=== PATIENT | female | born 1935 | race Caucasian/White ===

== ENCOUNTER 2023-11-13 10:19 | Inpatient (IN) ==
--- NOTE | 2023-11-13 10:23 | Emergency Department Note ---
Impression & Plan Cellulitis, Chronic wound ED Provider Note NAME: LUIZA CEE AGE: 88 SEX: F : 1935 ARRIVES VIA: Ambulance INFORMANT: Patient ED PROVIDER(S): ELVA Thomas, Flakito Johnston DO CHIEF COMPLAINT: Left lower extremity wound HISTORY OF PRESENT ILLNESS: This 88-year-old female patient presents to the emergency department via ambulance for evaluation of a worsening wound and cellulitis to the left lower extremity. The patient arrived from [facility], where she has been on multiple oral antibiotics, that have not appeared to improve her symptoms. The son arrived at the facility today, to visit his mother, and noted to the wound on the left lower extremity was significantly worse, and requested evaluation at the emergency department. The patient has dementia and Alzheimer's at baseline, and is a poor historian. She is hypertensive upon evaluation, however her others vital signs are stable. She complains of no other pain on examination aside from the left lower extremity. REVIEW OF SYSTEMS: A review of systems was performed with positives and pertinent negatives listed in the history of present illness. All other systems were reviewed and are negative. ALLERGIES: See below MEDICATIONS: See below PMH: See below PHYSICAL EXAM: VITALS: Vitals are noted on the nurse's note and reviewed by myself. Vital signs stable. GENERAL: 88-year-old female, in no acute distress, nondiaphoretic. SKIN: Circumferential cellulitis extending from the mid hills to the ankle of the left leg with a 2 cm x 2 cm lesion to the medial calf with crusting, exudate, drainage present. There is also a hardened, likely necrotic area to the right medial calf with no surrounding cellulitis. HEAD: Normocephalic atraumatic. EYES: Pupils equal round and reactive to light and accommodation. Conjunctivae without injection, sclerae without icterus. Extraocular movements intact. HEART: Regular rate and rhythm without murmurs gallops or rubs. LUNGS: Clear to auscultation bilaterally without wheezes, rales or rhonchi. No retractions or accessory muscle use. ABDOMEN: Positive bowel sounds x 4. Soft, nontender, without masses or organomegaly. Maldonado sign negative. No guarding or rebound tenderness. MUSCULOSKELETAL: No muscle atrophy, erythema, or edema noted. Exam limited to patient's baseline mental status. NEURO: Patient was alert and oriented to person place and time. No focal neurological deficits. MEDICAL DECISION MAKING: The patient is an 88-year-old female who arrives to the emergency department for evaluation of the above-stated complaint. A saline lock was established, CBC, CMP, lactate were obtained. CBC shows no leukocytosis with a stable hemoglobin and hematocrit, CMP unremarkable, lactate negative, wound culture was obtained which will not result during the patient's Emergency Department stay, but will be used to tailor antibiotic treatment upon discharge or admission. An ultrasound of the left lower extremity was obtained to rule out DVT, and determine abscess versus ulceration. Ultrasound imaging shows abscess versus phlegmon, likely phlegmon. I spoke with the son regarding the patient's wound, as well as her failed outpatient treatment. The send requested inpatient admission to the hospital for further treatment as the patient has been on doxycycline and Keflex with failed outpatient treatment. The son is concerned the patient is not getting the appropriate wound care at her facility, and feels the patient will continue to decline. He states the cellulitis is worsening. When asked if the patient follows with wound care, he said she does not. I spoke with the hospitalist for [facility], who agreed to accept the patient for admission, and requested IV vancomycin and Rocephin for broad-spectrum coverage. She reported she would consult general surgery for the wounds, as they are likely surgical and need debridement. Vancomycin and cefepime were ordered for the patient, while she was awaiting admission. The patient did test positive for COVID, which was obtained for admission status. I notified the [facility] hospitalist regarding this result. Please refer to the [facility] Hospitalist note regarding further patient workup and care. DIFFERENTIAL DIAGNOSIS: Cellulitis, abscess, MRSA infection, DVT, necrotizing fasciitis, dermatitis, drug eruption, allergic reaction, as well as other pathologies. The patient's case was discussed with Dr. Johnston, who agreed with my evaluation and treatment plan. The chart was completed utilizing [employer] Speech voice recognition software. Grammatical errors, random word insertions, pronoun errors, and incomplete sentences are an occasional consequence of this system due to software limitations, ambient noise, and hardware issues. Any formal questions or concerns about the content, text, or information contained within the body of this dictation should be directly addressed to the physician for clarification. 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 Beliefs That Will Affect Care: None Current Living Situation: Personal Care Facility Other Information That Helps Us Care for You: No Feels Safe at Home: Yes Safety Concerns: Feels Safe At This Time Assistive Devices: Walker Allergies Allergies Allergy/AdvReac Type Severity Reaction Status Date / Time No Known Allergies Allergy Unverified 11/13/23 13:27 Home Meds Home Medications Medication Instructions Recorded Confirmed acetaminophen 325 mg tablet 650 mg PO DAILY PRN Pain/Temp 11/13/23 11/13/23 atenolol 25 mg tablet 25 mg PO DAILY 11/13/23 11/13/23 cholecalciferol (vitamin D3) 25 25 mcg PO DAILY 11/13/23 11/13/23 mcg (1,000 unit) tablet (Vitamin D3) ferrous sulfate 325 mg (65 mg 325 mg PO BID 11/13/23 11/13/23 iron) tablet loperamide 2 mg capsule (Imodium 2 mg PO Q6H PRN Diarrhea 11/13/23 11/13/23 A-D) melatonin 5 mg tablet 5 mg PO HS 11/13/23 11/13/23 memantine 5 mg tablet 5 mg PO DAILY 11/13/23 11/13/23 Results & Data (ED) Vital Signs Vital Signs - 24 hr 11/13/23 10:14 11/13/23 10:37 Temperature 37.1 C Temperature Source Oral Pulse Rate 68 68 Pulse Rhythm Regular Regular Pulse Strength Normal Respiratory Rate 22 20 Respiratory Effort / Characteristics Non-Labored Spontaneous Respiratory Depth Normal Respiratory Pattern Regular Blood Pressure 175/85 H Blood Pressure Mean 115 Blood Pressure Position Sitting Pulse Oximetry 97 96 Oxygen Delivery Method Room Air Room Air Sepsis Recent Fever Within 48 Hours No Sepsis New/Unexplained Change in Mental Status No Sepsis Action Taken by Nursing No Action Required Home Medications Current Medication List: was personally reviewed by me Laboratory Data Attestation: I reviewed the patient's lab results. 11/15/23 09:53 11/15/23 09:53 Lab Results 11/13/23 11/13/23 Range/Units 11:44 13:07 WBC 6.70 (4.8-10.8) K/ul RBC 4.23 (4.20-5.40) M/uL Hgb 13.9 (12.0-16.0) g/dl Hct 41.8 (37.0-47.0) % MCV 98.8 (80.0-100.0) fL MCH 32.9 (25.0-34.0) pg MCHC 33.3 (32.0-36.0) g/dL RDW Std Deviation 45.1 (36.4-46.3) fL RDW Coeff of Mariola 12.4 (11.5-14.5) % Plt Count 226 (130-400) K/uL MPV 11.1 (9.4-12.4) fL Immature Gran % (Auto) 0.1 % Neut % (Auto) 71.9 % Lymph % (Auto) 9.7 % Miner % (Auto) 17.0 % Eos % (Auto) 0.7 % Baso % (Auto) 0.6 % Neut # (Auto) 4.81 (1.40-6.50) K/uL Lymph # (Auto) 0.65 L (1.20-3.40) K/uL Miner # (Auto) 1.14 H (0.11-0.59) K/uL Eos # (Auto) 0.05 (0.00-0.50) K/uL Baso # (Auto) 0.04 (0.00-0.20) K/uL Immature Gran # (Auto) 0.01 (0.01-0.20) K/uL Sodium Cancelled Potassium Cancelled Chloride Cancelled Carbon Dioxide Cancelled Anion Gap Cancelled BUN Cancelled Creatinine Cancelled Est Cr Clr Drug Dosing Cancelled Est GFR ( Amer) Cancelled Est GFR (Non-Af Amer) Cancelled BUN/Creatinine Ratio Cancelled Glucose Cancelled Lactate 1.8 (0.4-2.0) mmol/L Calcium Cancelled Total Bilirubin Cancelled AST Cancelled ALT Cancelled Alkaline Phosphatase Cancelled Total Protein Cancelled Albumin Cancelled Globulin Cancelled Albumin/Globulin Ratio Cancelled SARS-CoV-2, RNA, NAAT POSITIVE A (NEGATIVE) Administered Medications Atenolol (Atenolol 25 Mg Tablet) 25 mg PO DAILY [facility] Stop: 12/13/23 16:45 Last Admin: 11/15/23 08:29 Dose: 25 mg Documented By: Admin: 11/14/23 10:20 Dose: 25 mg Documented By: Admin: 11/13/23 17:50 Dose: Not Given Documented By: PHILOMENA Ferrous Sulfate (Ferrous Sulfate 325 Mg Tab) 325 mg PO BID [facility] Stop: 12/13/23 20:59 Last Admin: 11/15/23 08:29 Dose: 325 mg Documented By: Admin: 11/14/23 20:43 Dose: 325 mg Documented By: Admin: 11/14/23 10:21 Dose: 325 mg Documented By: Admin: 11/13/23 21:07 Dose: Not Given Documented By: Heparin Sodium (Porcine) (Heparin Sod 5,000 Unit/0.5 Ml Vial) 5,000 units SQ Q12 [facility] Stop: 12/13/23 20:59 Last Admin: 11/15/23 08:34 Dose: 5,000 units Documented By: Admin: 11/14/23 20:53 Dose: 5,000 units Documented By: Admin: 11/14/23 10:19 Dose: 5,000 units Documented By: Admin: 11/13/23 20:34 Dose: 5,000 units Documented By: Hydromorphone HCl (Hydromorphone Inj 0.5 Mg/0.5 Ml Syr) 0.25 mg IV Q6H PRN PRN Reason: Severe Pain (Scale 7, 8, 9,10) Stop: 11/27/23 16:45 Last Admin: 11/15/23 04:06 Dose: 0.25 mg Documented By: Admin: 11/14/23 21:32 Dose: 0.25 mg Documented By: Admin: 11/13/23 17:02 Dose: 0.25 mg Documented By: PHILOMENA Cefepime HCl 2,000 mg/ Syringe 20 mls @ 5 mls/min IV Q12H [facility]; Protocol Stop: 11/20/23 16:45 Last Admin: 11/15/23 16:37 Dose: 5 mls/min Documented By: Admin: 11/15/23 04:28 Dose: 5 mls/min Documented By: Admin: 11/14/23 17:23 Dose: 5 mls/min Documented By: Admin: 11/14/23 06:27 Dose: 5 mls/min Documented By: Admin: 11/13/23 17:55 Dose: 5 mls/min Documented By: HS Daptomycin 225 mg/ Syringe 4.5 mls @ 2.25 mls/min IV Q24H [facility]; Protocol Stop: 11/20/23 20:59 Last Admin: 11/14/23 20:52 Dose: 2.25 mls/min Documented By: Admin: 11/13/23 20:34 Dose: 2.25 mls/min Documented By: Melatonin (Melatonin 3 Mg Tab) 3 mg PO [facility] Stop: 12/13/23 20:59 Last Admin: 11/14/23 20:43 Dose: 3 mg Documented By: Admin: 11/13/23 21:07 Dose: Not Given Documented By: Memantine (Memantine Hcl 5 Mg Tab) 5 mg PO DAILY [facility] Stop: 12/14/23 08:59 Last Admin: 11/15/23 08:28 Dose: 5 mg Documented By: Admin: 11/14/23 10:21 Dose: 5 mg Documented By: KRIS Miconazole Nitrate (Miconazole Nitrate Powder 85 Gm) 1 appln EXT PRN PRN PRN Reason: Affected Skin Folds Stop: 12/14/23 01:30 Last Admin: 11/14/23 03:14 Dose: 1 appln Documented By: B Olanzapine (Olanzapine 10 Mg/2.1 Ml Sdv) 2.5 mg IM Q6H PRN PRN Reason: Agitation Stop: 12/13/23 16:45 Last Admin: 11/14/23 03:44 Dose: 2.5 mg Documented By: ANGELITO Vitamin D (Cholecalciferol 25 Mcg (1000 Units) Tab) 25 mcg PO DAILY [facility] Stop: 12/14/23 08:59 Last Admin: 11/15/23 08:29 Dose: 25 mcg Documented By: Admin: 11/14/23 10:20 Dose: 25 mcg Documented By: KRIS Discontinued Medications Gadobutrol (Gadobutrol 65ml Vial) 5 ml IV ONCE ONE Stop: 11/14/23 02:39 Last Admin: 11/14/23 02:39 Dose: 5 ml Documented By: TRICIA Ceftriaxone Sodium (Rocephin) 1,000 mg in 50 mls @ 100 mls/hr IV NOW STA Stop: 11/13/23 14:17 Last Infusion: 11/13/23 19:34 Dose: Infused Documented By: Admin: 11/13/23 15:18 Dose: 100 mls/hr Documented By: PHILOMENA Vancomycin HCl 1,250 mg/ (Sodium Chloride) 525 mls @ 200 mls/hr IV NOW ONE Stop: 11/13/23 16:25 Last Infusion: 11/13/23 19:29 Dose: Infused Documented By: Admin: 11/13/23 16:17 Dose: 200 mls/hr Documented By: Discharge Plan Visit Data Chief Complaint: Leg Weakness, Bilateral Stated Complaint: LEG WOUNDS, DIFF AMBULATING ED Provider: Flakito Johnston ED Midlevel Provider: Alessandra Gautam Discharge Problem: Cellulitis, Chronic wound Patient Disposition: Admitted As Inpatient Discharge Instructions Interventions: ED Discharge Assessment Last Done: 11/13/23 16:37 Discharge Problem: Cellulitis Qualifiers: Site of cellulitis: extremity Site of cellulitis of extremity: lower extremity Laterality: unspecified laterality Qualified Code(s): L03.119 - Cellulitis of unspecified part of limb
[2023-11-13 12:16] LABS: Basophils # (auto) 0.04 K/uL (0.00-0.20); Basophils % (auto) 0.6 %; Eosinophils # (auto) 0.05 K/uL (0.00-0.50); Eosinophils % (auto) 0.7 %; Hematocrit (blood only) 41.8 % (37.0-47.0); Hemoglobin 13.9 g/dl (12.0-16.0); Immature Granulocytes # (auto) 0.01 K/uL (0.01-0.20); Immature Granulocytes % (auto) 0.1 %; Lymphocytes # (auto) 0.65 K/uL (1.20-3.40); Lymphocytes % (auto) 9.7 %; Mean Corpuscular Hemoglobin 32.9 pg (25.0-34.0); Mean Corpuscular Hgb Conc 33.3 g/dL (32.0-36.0); Mean Corpuscular Volume 98.8 fL (80.0-100.0); Mean Platelet Volume 11.1 fL (9.4-12.4); Monocytes # (auto) 1.14 K/uL (0.11-0.59); Neutrophils # (auto) 4.81 K/uL (1.40-6.50); Neutrophils % (auto) 71.9 %; Platelet Count 226 K/uL (130-400); RDW Coefficient of Variation 12.4 % (11.5-14.5); RDW Standard Deviation 45.1 fL (36.4-46.3); Red Blood Count 4.23 M/uL (4.20-5.40)
--- NOTE | 2023-11-13 13:00 | Ultrasound Report ---
US venous doppler LE LT CLINICAL HISTORY: abscess vs ulceration TECHNIQUE: Left lower extremity real-time compression venous ultrasound with Color Doppler imaging. U tilizing real-time ultrasonic imaging multiple real time high-resolution ultrasonic images with compr ession and noncompression maneuvers of the deep venous system in addition to color doppler imaging we re performed from the common femoral vein through the proximal calf veins. COMPARISON: None available at the time of this dictation. FINDINGS/IMPRESSION: No deep venous thrombus, there is normal compressibility of the deep venous system from the common fe moral vein through the proximal calf veins. Ill-defined complex fluid collection measuring approxima tely 2.1 x 1.8 x 1.8 cm is seen in the left medial calf adjacent to an ulcer. There is minimal surrou nding Doppler flow. Findings may represent developing phlegmon but no definite abscess is seen. ACT 112: Negative or not required by law. Electronically signed by: David Augustine M.D. 11/13/2023 12:58 PM
[2023-11-13] MEDS ORDERED: VANCOMYCIN CONSULT ACTIVE PRN (13:48)
--- NOTE | 2023-11-13 13:57 | History & Physical Report ---
Date of Service November 13, 2023 Assessment & Plan (1) Cellulitis: (2) Chronic wound: Plan Patient is an 88-year-old female with past medical history significant for dementia, hypertension, iron deficiency anemia, insomnia, vitamin D deficiency presenting from [facility] with concern for lower extremity wounds and cellulitis. Reportedly patient was on doxycycline and Keflex antibiotics courses for treatment at [facility]. Family denies any noted fevers, chills or night sweats But they do note that the wounds have been present for at least a month bilaterally. Cellulitis, bilateral lower extremities Chronic wounds Per son, wounds have been present for at least a month bilaterally Venous Doppler done in the emergency room of the left lower extremity notes no deep venous thrombi however it does note a complex fluid collection Right lower extremity with noted firm wound with possible necrotic center MRIs of bilateral lower extremities ordered to rule out osteomyelitis Wound culture pending No concern for sepsis at this time General Surgery consult for possible incision and drainage or surgical debridement Wound care nurse consult Received empiric IV Rocephin and vancomycin in the emergency room, we will continue with IV cefepime and Dapto Follow cultures and adjust antibiotics as needed As needed pain meds COVID-19 infection Patient testing positive for COVID, currently asymptomatic Not currently hypoxic Presenting from long term Supportive care as needed COVID precautions continue to monitor Dementia Family concerned as the note patient sundown's severely Delirium precautions, Frequent reorientation, avoid sedating medications as able Continue home memantine As needed olanzapine for agitation Hypertension Continue home atenolol Continue other home meds as ordered CODE STATUS: DNR per [facility] documentation, confirmed with son Diet: regular DVT prophylaxis: Heparin subcu Dispo: Admit to [facility] History of Present Illness Chief Complaint: Chronic wounds Primary Care Provider: Diego Leigh DO Patient is an 88-year-old female with past medical history significant for dementia, hypertension, iron deficiency anemia, insomnia, vitamin D deficiency presenting from [facility] with concern for lower extremity wounds and cellulitis. Reportedly patient was on doxycycline and Keflex antibiotics courses for treatment at [facility] with no improvement in symptoms. Family denies any noted fevers, chills or night sweats. But they do note that the wounds have been present for at least a month bilaterally. They note that their mom has dementia and at baseline is unable to answer questions. Son present in the room states he is the POA, states he has paperwork at home. Later confirmed with son that patient is DNR/DNI. Allergies Allergy/AdvReac Type Severity Reaction Status Date / Time No Known Allergies Allergy Unverified 11/13/23 13:27 Home Medications Medication Instructions Recorded Confirmed Type acetaminophen 325 mg tablet 650 mg PO DAILY PRN Pain/Temp 11/13/23 11/13/23 History atenolol 25 mg tablet 25 mg PO DAILY 11/13/23 11/13/23 History cholecalciferol (vitamin D3) 25 25 mcg PO DAILY 11/13/23 11/13/23 History mcg (1,000 unit) tablet (Vitamin D3) ferrous sulfate 325 mg (65 mg 325 mg PO BID 11/13/23 11/13/23 History iron) tablet loperamide 2 mg capsule (Imodium 2 mg PO Q6H PRN Diarrhea 11/13/23 11/13/23 History A-D) melatonin 5 mg tablet 5 mg PO HS 11/13/23 11/13/23 History memantine 5 mg tablet 5 mg PO DAILY 11/13/23 11/13/23 History Past Med/Surg History Problem List (Updated 11/13/23 @ 14:47 by Sole Kunz MD) Chronic wound Cellulitis Social History Smoking Status: Unknown if ever smoked Feels Safe at Home: Declines to Answer Review of Systems Review of Systems: All systems reviewed & are unremarkable except as noted in Subjective Physical Exam Physical Exam: General: Alert, Confused. No acute distress Skin: left lower extremity with erythema and noted prominent protruding, tender lesion with drainage on posterior calf. Right lower extremity firm and erythematous with possible necrotic center on posterior calf. Psych: confused Neuro: , difficulty with movements in the bed HEENT: NC/AT CV: RRR Resp: no increased effort of breathing Abdomen: Soft, nontender Extremities: left lower extremity with erythema and noted prominent protruding, tender lesion with drainage on posterior calf. Right lower extremity firm and erythematous with possible necrotic center on posterior calf. Results & Data Results & Data Vital Signs (Past 12 Hours) Vital Signs Temp Pulse Pulse Resp BP BP Pulse Ox 11/13/23 13:09 64 20 184/79 H 97 11/13/23 10:37 68 20 96 11/13/23 10:14 37.1 C 68 22 175/85 H 97 O2 Del Method 11/13/23 13:09 Room Air 11/13/23 10:37 Room Air 11/13/23 10:14 Room Air Diagnostic Findings Venous Doppler Study 11/13/23 10:36 US venous doppler LE LT CLINICAL HISTORY: abscess vs ulceration TECHNIQUE: Left lower extremity real-time compression venous ultrasound with Color Doppler imaging. Utilizing real-time ultrasonic imaging multiple real time high-resolution ultrasonic images with compression and noncompression maneuvers of the deep venous system in addition to color doppler imaging were performed from the common femoral vein through the proximal calf veins. COMPARISON: None available at the time of this dictation. FINDINGS/IMPRESSION: No deep venous thrombus, there is normal compressibility of the deep venous system from the common femoral vein through the proximal calf veins. Ill- defined complex fluid collection measuring approximately 2.1 x 1.8 x 1.8 cm is seen in the left medial calf adjacent to an ulcer. There is minimal surrounding Doppler flow. Findings may represent developing phlegmon but no definite abscess is seen. ACT 112: Negative or not required by law. Electronically signed by: David Augustine M.D. 11/13/2023 12:58 PM
[2023-11-13 14:51] LABS: Albumin Globulin Ratio 1.2 (0.9-2); Albumin Level 3.8 gm/dl (3.4-5.0); BUN Creatinine Ratio 19.7 (10-20); Bilirubin,Total 0.6 mg/dl (0.2-1.0); Calcium 9.2 mg/dl (8.6-10.3); Creatinine Clr Calc Pharmacy 45.9 ml/min; Est GFR (African American) 82.3 ml/min; Globulin 3.1 gm/dl (2.5-4.0); Potassium 4.4 mmol/L (3.5-5.1); Total Protein 6.9 gm/dl (6.0-8.3)
[2023-11-13] MEDS: cefTRIAXone SODIUM 1,000 MG/50 ML BAG IV STA (15:18)
[2023-11-13] MEDS: VANCOMYCIN HCL 1,250 MG in SODIUM CHLORIDE 0.9% 500 ML IV ONE (16:17)
[2023-11-13] MEDS ORDERED: DOCUSATE SODIUM 100 MG CAP PO PRN (16:46)
[2023-11-13] MEDS ORDERED: oxyCODONE HCL IR 5 MG TAB (IMMEDIATE RELEASE) PO PRN (16:46)
[2023-11-13] MEDS ORDERED: POLYETHYLENE (MIRALAX) 17 GM PACK PO PRN (16:46)
[2023-11-13] MEDS: HYDROmorphone INJ 0.5 MG/0.5 ML SYR IV PRN (17:02)
[2023-11-13] MEDS: ATENOLOL 25 MG TABLET PO SCH (17:50)
[2023-11-13] MEDS: CEFEPIME 2,000 MG in SYRINGE 0 ML IV SCH (17:55)
[2023-11-13] MEDS: DAPTOmycin 225 MG in SYRINGE 0 ML IV SCH (20:34)
[2023-11-13] MEDS: HEPARIN SOD 5,000 UNIT/0.5 ML VIAL SQ SCH (20:34)
[2023-11-13] MEDS: MELATONIN 3 MG TAB PO SCH (21:07)
[2023-11-13] MEDS: FERROUS SULFATE 325 MG TAB PO SCH (21:07)
[2023-11-14] MEDS: GADOBUTROL 65ML VIAL IV ONE (02:39)
[2023-11-14] MEDS: MICONAZOLE NITRATE POWDER 85 GM EXT PRN (03:14)
[2023-11-14] MEDS: OLANZapine 10 MG/2.1 ML SDV IM PRN (03:44)
--- NOTE | 2023-11-14 03:50 | Magnetic Resonance Report ---
Exam(s): MRI EXTREMITY W/WO Contrast IV Amt: 5cc gadavist EXAM: MR left Lower extremity Without and With Intravenous Contrast, Tibia and Fibula CLINICAL HISTORY: Reason for exam: cellulitis, chronic wound, r/o osteo. TECHNIQUE: Multiplanar magnetic resonance images of the left lower leg without and with intravenous contrast. CONTRAST: Patient received 5cc Gadavist of IV contrast COMPARISON: No relevant prior studies available. FINDINGS: Bones/joints: No acute fracture. No dislocation. No bony destruction is noted. No bone marrow edema is seen.. No abnormal contrast enhancement is noted. Soft tissues: There is soft tissue swelling and edema. No discrete mass or fluid collection is noted. The visualized musculature is grossly unremarkable IMPRESSION: There is soft tissue swelling and edema. No MRI evidence of acute osteomyelitis Electronically signed by: Stew Redd MD 11/14/23 03:49 AM
--- NOTE | 2023-11-14 03:51 | Magnetic Resonance Report ---
Exam(s): MRI RIGHT LOWER EXTREMITY W/WO C IV Amt: 5cc gadavist EXAM: MR Right Lower Extremity Without and With Intravenous Contrast CLINICAL HISTORY: Reason for exam: cellulitis, chronic wound, r/o osteo. TECHNIQUE: Multiplanar magnetic resonance images of the right lower extremity without and with intravenous contrast. CONTRAST: Patient received 5cc Gadavist of IV contrast COMPARISON: No relevant prior studies available. FINDINGS: Bones/joints: No acute fracture. No dislocation. No gross bony destruction. No bone marrow edema.. No abnormal contrast enhancement. Soft tissues: There is soft tissue swelling and edema. No discrete mass or fluid collection is noted. The visualized musculature is grossly unremarkable. IMPRESSION: Soft tissue swelling and edema. No MRI evidence of acute osteomyelitis. Electronically signed by: Stew Redd MD 11/14/23 03:51 AM
[2023-11-14 06:57] LABS: Basophils # (auto) 0.05 K/uL (0.00-0.20); Basophils % (auto) 0.8 %; Eosinophils # (auto) 0.01 K/uL (0.00-0.50); Eosinophils % (auto) 0.2 %; Hematocrit (blood only) 41.4 % (37.0-47.0); Hemoglobin 13.2 g/dl (12.0-16.0); Immature Granulocytes # (auto) 0.02 K/uL (0.01-0.20); Immature Granulocytes % (auto) 0.3 %; Lymphocytes # (auto) 1.08 K/uL (1.20-3.40); Lymphocytes % (auto) 16.5 %; Mean Corpuscular Hgb Conc 31.9 g/dL (32.0-36.0); Mean Corpuscular Volume 100.5 fL (80.0-100.0); Mean Platelet Volume 10.6 fL (9.4-12.4); Monocytes # (auto) 1.15 K/uL (0.11-0.59); Monocytes % (auto) 17.6 %; Neutrophils # (auto) 4.24 K/uL (1.40-6.50); Neutrophils % (auto) 64.6 %; Platelet Count 189 K/uL (130-400); RDW Coefficient of Variation 12.4 % (11.5-14.5); RDW Standard Deviation 46.5 fL (36.4-46.3); Red Blood Count 4.12 M/uL (4.20-5.40); White Blood Count 6.55 K/ul (4.8-10.8)
[2023-11-14 07:00] LABS: Albumin Level 3.6 gm/dl (3.4-5.0); Bilirubin,Total 0.8 mg/dl (0.2-1.0); Calcium 8.8 mg/dl (8.6-10.3); Magnesium 2.1 mg/dl (1.7-2.4); Potassium 4.1 mmol/L (3.5-5.1)
[2023-11-14 07:06] LABS: Albumin Globulin Ratio 1.2 (0.9-2); BUN Creatinine Ratio 18.6 (10-20); Creatinine Clr Calc Pharmacy 38.7 ml/min; Est GFR (African American) 90.9 ml/min; Est GFR (Non-African American) 78.5 ml/min; Globulin 3.1 gm/dl (2.5-4.0); Phosphorus 3.4 mg/dl (2.5-4.9); Total Protein 6.7 gm/dl (6.0-8.3)
--- NOTE | 2023-11-14 10:09 | Surgery Consultation ---
Date of Consultation November 14, 2023 Assessment & Plan (1) Chronic wound: IV abx to treat cellulitis dressing per wound nurse and follow up with outpatient wound clinic no surgical issues will sign off History of Present Illness Attending Physician: Idris Davis MD History of Present Illness This is a 88YO female patient admitted with bilateral venous stasis disease and cellulitis to the left lower extremity with an open wound. The patient has dementia and Alzheimer's at baseline, and is a poor historian. She has open draining wound on the left. Allergies Allergy/AdvReac Type Severity Reaction Status Date / Time No Known Allergies Allergy Unverified 11/13/23 13:27 Home Medications Medication Instructions Recorded Confirmed Type acetaminophen 325 mg tablet 650 mg PO DAILY PRN Pain/Temp 11/13/23 11/13/23 History atenolol 25 mg tablet 25 mg PO DAILY 11/13/23 11/13/23 History cholecalciferol (vitamin D3) 25 25 mcg PO DAILY 11/13/23 11/13/23 History mcg (1,000 unit) tablet (Vitamin D3) ferrous sulfate 325 mg (65 mg 325 mg PO BID 11/13/23 11/13/23 History iron) tablet loperamide 2 mg capsule (Imodium 2 mg PO Q6H PRN Diarrhea 11/13/23 11/13/23 History A-D) melatonin 5 mg tablet 5 mg PO HS 11/13/23 11/13/23 History memantine 5 mg tablet 5 mg PO DAILY 11/13/23 11/13/23 History Patient History Social History Smoking Status: Never smoker Second Hand Exposure: No; Do You Dip or Chew Tobacco: No; Hx Alcohol Use: No Hx Substance Use: No Preferred Language: Ethiopian Communication Ability: Impaired 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 Beliefs That Will Affect Care: None Current Living Situation: Personal Care Facility Other Information That Helps Us Care for You: No Feels Safe at Home: Yes Safety Concerns: Feels Safe At This Time Review of Systems Review of Systems: Unobtainable due to mental health condition Physical Exam Constitutional: + thin Eyes: PERRL, conjunctivae normal, anicteric sclerae ENMT: external ear and nose normal, oropharynx normal Neck: trachea midline Respiratory: normal respiratory effort, lungs clear to auscultation Cardiovascular: RRR, no murmur, no edema Gastrointestinal (Abdomen): Inspection/Auscultation: abdomen normal to inspection and normal bowel sounds; abdomen not distended Percussion/Palpation: abdomen soft; abdomen nontender Musculoskeletal: Head/Neck/Chest: normocephalic and head atraumatic bilateral venous stasis disease with some cellulitis on the left associated with open draining wound Skin: no rashes, warm and dry Results & Data Vital Signs (Past 12 Hours) Vital Signs Temp Pulse Resp BP BP Pulse Ox O2 Del Method 11/14/23 08:52 68 18 159/70 H 97 Room Air 11/14/23 07:38 36.7 C 55 L 18 184/72 H 96 Room Air 11/13/23 22:30 Room Air 11/13/23 22:15 37.8 C H 62 20 171/73 H 96 Nasal Cannula O2 Flow Rate 11/14/23 08:52 11/14/23 07:38 11/13/23 22:30 11/13/23 22:15 2 Diagnostic Findings Exam(s): MRI RIGHT LOWER EXTREMITY W/WO C IV Amt: 5cc gadavist EXAM: MR Right Lower Extremity Without and With Intravenous Contrast CLINICAL HISTORY: Reason for exam: cellulitis, chronic wound, r/o osteo. TECHNIQUE: Multiplanar magnetic resonance images of the right lower extremity without and with intravenous contrast. CONTRAST: Patient received 5cc Gadavist of IV contrast COMPARISON: No relevant prior studies available. FINDINGS: Bones/joints: No acute fracture. No dislocation. No gross bony destruction. No bone marrow edema.. No abnormal contrast enhancement. Soft tissues: There is soft tissue swelling and edema. No discrete mass or fluid collection is noted. The visualized musculature is grossly unremarkable. IMPRESSION: Soft tissue swelling and edema. No MRI evidence of acute osteomyelitis.
[2023-11-14] MEDS: CHOLECALCIFEROL 25 MCG (1000 UNITS) TAB PO SCH (10:20)
[2023-11-14] MEDS: MEMANTINE HCL 5 MG TAB PO SCH (10:21)
--- NOTE | 2023-11-14 15:35 | Hospitalist Progress Note ---
Date of Service November 14, 2023 Assessment & Plan (1) Cellulitis: Plan: Patient is an 88-year-old female with past medical history significant for dementia, hypertension, iron deficiency anemia, insomnia, vitamin D deficiency presenting from [facility] with concern for lower extremity wounds and cellulitis. Reportedly patient was on doxycycline and Keflex antibiotics courses for treatment at [facility]. Family denies any noted fevers, chills or night sweats But they do note that the wounds have been present for at least a month bilaterally. Cellulitis, bilateral lower extremities Chronic wounds Per son, wounds have been present for at least a month bilaterally Venous Doppler done in the emergency room of the left lower extremity notes no deep venous thrombi however it does note a complex fluid collection Right lower extremity with noted firm wound with possible necrotic center MRIs of bilateral Lower extremities did not show any evidence of osteomyelitis or any abscess formation it did show soft tissue swelling and edema Wound culture pending-Showing pinpoint growth No concern for sepsis at this time Appreciate surgery input and recommendation to continue current antibiotic Wound care nurse consult Received empiric IV Rocephin and vancomycin in the emergency room, we will continue with IV cefepime and Dapto Will monitor (2) Chronic wound: Plan COVID-19 infection Patient testing positive for COVID, currently asymptomatic Not currently hypoxic Presenting from snf Supportive care as needed COVID precautions Remains free from any respiratory symptoms Dementia Family concerned as the note patient sundown's severely Delirium precautions, Frequent reorientation, avoid sedating medications as able Continue home memantine As needed olanzapine for agitation Has been requiring one-to-one sitter occasionally Hypertension Continue home atenolol Continue other home meds as ordered CODE STATUS: DNR per [facility] documentation, confirmed with son Diet: regular DVT prophylaxis: Heparin subcu Dispo: Admit to [facility] Admission and Anticipated Discharge Date Admission Date: November 13, 2023 Subjective 11/14/2023 The patient was seen and examined in medical floor and in the COVID room He was admitted with cellulitis and bilateral lower extremity wound. And noted to have COVID-19 virus infection Remains confused from dementia but denies any significant symptoms Review of Systems Review of Systems: All systems reviewed and are unremarkable except as noted below Physical Exam Physical Exam: Sitting at the edge of the bed without any acute distress Constitutional: well developed, well nourished and + ill appearing Eyes: PERRL, conjunctivae normal, anicteric sclerae ENMT: external ear and nose normal, oropharynx normal Neck: trachea midline, no thyromegaly Respiratory: no respiratory distress Auscultation: + diminished lung sounds and + crackles (Occasional crackles at the bases) Cardiovascular: Rate/Rhythm: regular rate, regular rhythm and + bradycardic Heart Sounds: normal S1 and normal S2; no murmur Extremities: + edema (1+ edema bilaterally with chronic wounds ) Gastrointestinal (Abdomen): Inspection/Auscultation: normal bowel sounds; abdomen not distended Percussion/Palpation: abdomen soft; abdomen nontender Musculoskeletal: No acute arthritis involving any of the joints. Erythema, tenderness with ulcers in posterior calves Neurologic: Alert and awake. Pleasantly confused with history of dementia Lymphatic: no cervical or axillary lymphadenopathy Results & Data Results & Data Vital Signs (Past 12 Hours) Vital Signs Temp Pulse Resp BP BP Pulse Ox O2 Del Method 11/14/23 14:45 36.7 C 55 L 18 175/50 H 97 Room Air 11/14/23 08:52 68 18 159/70 H 97 Room Air 11/14/23 07:38 36.7 C 55 L 18 184/72 H 96 Room Air Laboratory Results Short CBC 11/14/23 Range/Units 06:04 WBC 6.55 (4.8-10.8) K/ul Hgb 13.2 (12.0-16.0) g/dl Hct 41.4 (37.0-47.0) % Plt Count 189 (130-400) K/uL BMP 11/14/23 06:04 Sodium 137 Potassium 4.1 Chloride 105 Carbon Dioxide 23 BUN 13 Creatinine 0.70 Glucose 73 Calcium 8.8 Liver Function 11/14/23 Range/Units 06:04 Total Bilirubin 0.8 (0.2-1.0) mg/dl AST 169 H (13-39) U/L ALT 104 H (7-52) U/L Alkaline Phosphatase 177 H D (34-104) U/L Albumin 3.6 (3.4-5.0) gm/dl Medications Administered Current Inpatient Medications Acetaminophen (Acetaminophen 500 Mg Tab) 1,000 mg PO Q8H PRN PRN Reason: fever or mild pain Stop: 12/13/23 16:45 Atenolol (Atenolol 25 Mg Tablet) 25 mg PO DAILY [facility] Stop: 12/13/23 16:45 Last Admin: 11/14/23 10:20 Dose: 25 mg Docusate Sodium (Docusate Sodium 100 Mg Cap) 100 mg PO BID PRN PRN Reason: constipation Stop: 12/13/23 16:45 Ferrous Sulfate (Ferrous Sulfate 325 Mg Tab) 325 mg PO BID [facility] Stop: 12/13/23 20:59 Last Admin: 11/14/23 10:21 Dose: 325 mg Heparin Sodium (Porcine) (Heparin Sod 5,000 Unit/0.5 Ml Vial) 5,000 units SQ Q12 [facility] Stop: 12/13/23 20:59 Last Admin: 11/14/23 10:19 Dose: 5,000 units Hydromorphone HCl (Hydromorphone Inj 0.5 Mg/0.5 Ml Syr) 0.25 mg IV Q6H PRN PRN Reason: Severe Pain (Scale 7, 8, 9,10) Stop: 11/27/23 16:45 Last Admin: 11/13/23 17:02 Dose: 0.25 mg Cefepime HCl 2,000 mg/ Syringe 20 mls @ 5 mls/min IV Q12H [facility]; Protocol Stop: 11/20/23 16:45 Last Admin: 11/14/23 06:27 Dose: 5 mls/min Daptomycin 225 mg/ Syringe 4.5 mls @ 2.25 mls/min IV Q24H [facility]; Protocol Stop: 11/20/23 20:59 Last Admin: 11/13/23 20:34 Dose: 2.25 mls/min Melatonin (Melatonin 3 Mg Tab) 3 mg PO HS [facility] Stop: 12/13/23 20:59 Last Admin: 11/13/23 21:07 Dose: Not Given Memantine (Memantine Hcl 5 Mg Tab) 5 mg PO DAILY [facility] Stop: 12/14/23 08:59 Last Admin: 11/14/23 10:21 Dose: 5 mg Miconazole Nitrate (Miconazole Nitrate Powder 85 Gm) 1 appln EXT PRN PRN PRN Reason: Affected Skin Folds Stop: 12/14/23 01:30 Last Admin: 11/14/23 03:14 Dose: 1 appln Olanzapine (Olanzapine 10 Mg/2.1 Ml Sdv) 2.5 mg IM Q6H PRN PRN Reason: Agitation Stop: 12/13/23 16:45 Last Admin: 11/14/23 03:44 Dose: 2.5 mg Oxycodone HCl (Oxycodone Hcl Ir 5 Mg Tab (Immediate Release)) 5 mg PO Q8H PRN PRN Reason: moderate pain Stop: 11/27/23 16:45 Polyethylene Glycol (Polyethylene (Miralax) 17 Gm Pack) 17 gm PO DAILY PRN PRN Reason: Constipation Stop: 12/13/23 16:45 Vitamin D (Cholecalciferol 25 Mcg (1000 Units) Tab) 25 mcg PO DAILY [facility] Stop: 12/14/23 08:59 Last Admin: 11/14/23 10:20 Dose: 25 mcg
[2023-11-14] MEDS ORDERED: COUGH DROP (SUGAR FREE) LOZ 24 LOZ/1 BOX BUCCAL PRN (21:01)
[2023-11-15 10:13] LABS: Basophils # (auto) 0.05 K/uL (0.00-0.20); Basophils % (auto) 0.9 %; Eosinophils # (auto) 0.03 K/uL (0.00-0.50); Eosinophils % (auto) 0.5 %; Hematocrit (blood only) 40.4 % (37.0-47.0); Hemoglobin 13.3 g/dl (12.0-16.0); Immature Granulocytes # (auto) 0.02 K/uL (0.01-0.20); Immature Granulocytes % (auto) 0.3 %; Lymphocytes # (auto) 1.05 K/uL (1.20-3.40); Lymphocytes % (auto) 17.9 %; Mean Corpuscular Hemoglobin 32.3 pg (25.0-34.0); Mean Corpuscular Hgb Conc 32.9 g/dL (32.0-36.0); Mean Corpuscular Volume 98.1 fL (80.0-100.0); Mean Platelet Volume 10.4 fL (9.4-12.4); Monocytes # (auto) 0.73 K/uL (0.11-0.59); Monocytes % (auto) 12.5 %; Neutrophils # (auto) 3.98 K/uL (1.40-6.50); Neutrophils % (auto) 67.9 %; Platelet Count 217 K/uL (130-400); RDW Coefficient of Variation 12.4 % (11.5-14.5); RDW Standard Deviation 44.9 fL (36.4-46.3); Red Blood Count 4.12 M/uL (4.20-5.40); White Blood Count 5.86 K/ul (4.8-10.8)
[2023-11-15 10:36] LABS: BUN Creatinine Ratio 25.6 (10-20); Calcium 8.9 mg/dl (8.6-10.3); Creatinine Clr Calc Pharmacy 34.8 ml/min; Est GFR (African American) 79.8 ml/min; Est GFR (Non-African American) 68.8 ml/min; Potassium 3.9 mmol/L (3.5-5.1)
[2023-11-15 12:46] LABS: Hep B Surface Ag with confirm Negative (Negative)
[2023-11-15 12:52] LABS: Hep C Ab Rflx HepCQuant RNA Negative (Negative)
--- NOTE | 2023-11-15 14:37 | Hospitalist Progress Note ---
Date of Service November 15, 2023 Assessment & Plan (1) Cellulitis: Plan: Patient is an 88-year-old female with past medical history significant for dementia, hypertension, iron deficiency anemia, insomnia, vitamin D deficiency presenting from [facility] with concern for lower extremity wounds and cellulitis. Reportedly patient was on doxycycline and Keflex antibiotics courses for treatment at [facility]. Family denies any noted fevers, chills or night sweats But they do note that the wounds have been present for at least a month bilaterally. Cellulitis, bilateral lower extremities Chronic wounds Per son, wounds have been present for at least a month bilaterally Venous Doppler done in the emergency room of the left lower extremity notes no deep venous thrombi however it does note a complex fluid collection Right lower extremity with noted firm wound with possible necrotic center MRIs of bilateral Lower extremities did not show any evidence of osteomyelitis or any abscess formation it did show soft tissue swelling and edema Wound culture pending-Showing pinpoint growth No concern for sepsis at this time Appreciate surgery input and recommendation to continue current antibiotic Wound care nurse consult Received empiric IV Rocephin and vancomycin in the emergency room, we will continue with IV cefepime and Dapto Wound has been looking better and will continue with the current management Continue with the wound care Abnormal LFTs Likely secondary to COVID-19 virus infection Could be secondary to hypotension that may have happened before Hepatitis panel has been negative will monitor LFTs (2) Chronic wound: Plan COVID-19 infection Patient testing positive for COVID, currently asymptomatic Not currently hypoxic Presenting from shelter Supportive care as needed COVID precautions Remains free from any respiratory symptoms Dementia Family concerned as the note patient sundown's severely Delirium precautions, Frequent reorientation, avoid sedating medications as able Continue home memantine As needed olanzapine for agitation Has been requiring one-to-one sitter occasionally Hypertension Continue home atenolol Continue other home meds as ordered CODE STATUS: DNR per [facility] documentation, confirmed with son Diet: regular DVT prophylaxis: Heparin subcu Dispo: Admit to [facility] Admission and Anticipated Discharge Date Admission Date: November 13, 2023 Subjective 11/14/2023 The patient was seen and examined in medical floor and in the COVID room He was admitted with cellulitis and bilateral lower extremity wound. And noted to have COVID-19 virus infection Remains confused from dementia but denies any significant symptoms 11/15/2023 The patient was seen and examined in medical floor in the [facility] room She does not have any respiratory symptoms Remains confused secondary to dementia Review of Systems Review of Systems: All systems reviewed and are unremarkable except as noted below Physical Exam Physical Exam: Sitting at the edge of the bed without any acute distress Constitutional: well developed, well nourished and + ill appearing Eyes: PERRL, conjunctivae normal, anicteric sclerae ENMT: external ear and nose normal, oropharynx normal Neck: trachea midline, no thyromegaly Respiratory: no respiratory distress Auscultation: + diminished lung sounds and + crackles (Occasional crackles at the bases) Cardiovascular: Rate/Rhythm: regular rate, regular rhythm and + bradycardic Heart Sounds: normal S1 and normal S2; no murmur Extremities: + edema (1+ edema bilaterally with chronic wounds ) Gastrointestinal (Abdomen): Inspection/Auscultation: normal bowel sounds; abdomen not distended Percussion/Palpation: abdomen soft; abdomen nontender Lymphatic: no cervical or axillary lymphadenopathy Results & Data Results & Data Vital Signs (Past 12 Hours) Vital Signs Temp Pulse Resp BP Pulse Ox O2 Del Method 11/15/23 07:45 Room Air 11/15/23 07:20 36.4 C L 61 18 151/66 H 96 Room Air Laboratory Results Short CBC 11/15/23 Range/Units 09:53 WBC 5.86 (4.8-10.8) K/ul Hgb 13.3 (12.0-16.0) g/dl Hct 40.4 (37.0-47.0) % Plt Count 217 (130-400) K/uL BMP 11/15/23 09:53 Sodium 138 Potassium 3.9 Chloride 104 Carbon Dioxide 27 BUN 20 Creatinine 0.78 Glucose 147 H Calcium 8.9 Medications Administered Current Inpatient Medications Acetaminophen (Acetaminophen 500 Mg Tab) 1,000 mg PO Q8H PRN PRN Reason: fever or mild pain Stop: 12/13/23 16:45 Atenolol (Atenolol 25 Mg Tablet) 25 mg PO DAILY [facility] Stop: 12/13/23 16:45 Last Admin: 11/15/23 08:29 Dose: 25 mg Docusate Sodium (Docusate Sodium 100 Mg Cap) 100 mg PO BID PRN PRN Reason: constipation Stop: 12/13/23 16:45 Ferrous Sulfate (Ferrous Sulfate 325 Mg Tab) 325 mg PO BID [facility] Stop: 12/13/23 20:59 Last Admin: 11/15/23 08:29 Dose: 325 mg Heparin Sodium (Porcine) (Heparin Sod 5,000 Unit/0.5 Ml Vial) 5,000 units SQ Q12 [facility] Stop: 12/13/23 20:59 Last Admin: 11/15/23 08:34 Dose: 5,000 units Hydromorphone HCl (Hydromorphone Inj 0.5 Mg/0.5 Ml Syr) 0.25 mg IV Q6H PRN PRN Reason: Severe Pain (Scale 7, 8, 9,10) Stop: 11/27/23 16:45 Last Admin: 11/15/23 04:06 Dose: 0.25 mg Cefepime HCl 2,000 mg/ Syringe 20 mls @ 5 mls/min IV Q12H [facility]; Protocol Stop: 11/20/23 16:45 Last Admin: 11/15/23 04:28 Dose: 5 mls/min Daptomycin 225 mg/ Syringe 4.5 mls @ 2.25 mls/min IV Q24H [facility]; Protocol Stop: 11/20/23 20:59 Last Admin: 11/14/23 20:52 Dose: 2.25 mls/min Melatonin (Melatonin 3 Mg Tab) 3 mg PO HS [facility] Stop: 12/13/23 20:59 Last Admin: 11/14/23 20:43 Dose: 3 mg Memantine (Memantine Hcl 5 Mg Tab) 5 mg PO DAILY [facility] Stop: 12/14/23 08:59 Last Admin: 11/15/23 08:28 Dose: 5 mg Menthol (Cough Drop (Sugar Free) [place] 24 [place]/1 Box) 0 [place] BUCCAL Q4 PRN PRN Reason: Cough Stop: 12/14/23 21:00 Miconazole Nitrate (Miconazole Nitrate Powder 85 Gm) 1 appln EXT PRN PRN PRN Reason: Affected Skin Folds Stop: 12/14/23 01:30 Last Admin: 11/14/23 03:14 Dose: 1 appln Olanzapine (Olanzapine 10 Mg/2.1 Ml Sdv) 2.5 mg IM Q6H PRN PRN Reason: Agitation Stop: 12/13/23 16:45 Last Admin: 11/14/23 03:44 Dose: 2.5 mg Oxycodone HCl (Oxycodone Hcl Ir 5 Mg Tab (Immediate Release)) 5 mg PO Q8H PRN PRN Reason: moderate pain Stop: 11/27/23 16:45 Polyethylene Glycol (Polyethylene (Miralax) 17 Gm Pack) 17 gm PO DAILY PRN PRN Reason: Constipation Stop: 12/13/23 16:45 Vitamin D (Cholecalciferol 25 Mcg (1000 Units) Tab) 25 mcg PO DAILY [facility] Stop: 12/14/23 08:59 Last Admin: 11/15/23 08:29 Dose: 25 mcg
[2023-11-16 09:32] LABS: Hepatitis A Antibody IgM NON-REACTIVE (NON-REACTIVE); Hepatitis B Core Antibody IgM NON-REACTIVE (NON-REACTIVE)
[2023-11-16 10:15] LABS: Albumin Level 3.6 gm/dl (3.4-5.0); Bilirubin Direct 0.1 mg/dl (0-0.2); Bilirubin,Total 0.6 mg/dl (0.2-1.0); Calcium 9.1 mg/dl (8.6-10.3); Potassium 4.5 mmol/L (3.5-5.1)
[2023-11-16 10:21] LABS: BUN Creatinine Ratio 28.4 (10-20); C Reactive Protein 2.62 mg/dl (0-0.5); Creatinine Clr Calc Pharmacy 40.5 ml/min; Est GFR (African American) 92.2 ml/min; Est GFR (Non-African American) 79.6 ml/min; Total Protein 6.8 gm/dl (6.0-8.3)
--- NOTE | 2023-11-16 14:36 | Hospitalist Progress Note ---
Date of Service November 16, 2023 Assessment & Plan (1) Cellulitis: Plan: Patient is an 88-year-old female with past medical history significant for dementia, hypertension, iron deficiency anemia, insomnia, vitamin D deficiency presenting from [facility] with concern for lower extremity wounds and cellulitis. Reportedly patient was on doxycycline and Keflex antibiotics courses for treatment at [facility]. Family denies any noted fevers, chills or night sweats But they do note that the wounds have been present for at least a month bilaterally. Cellulitis, bilateral lower extremities Chronic wounds Per son, wounds have been present for at least a month bilaterally Venous Doppler done in the emergency room of the left lower extremity notes no deep venous thrombi however it does note a complex fluid collection Right lower extremity with noted firm wound with possible necrotic center MRIs of bilateral Lower extremities did not show any evidence of osteomyelitis or any abscess formation it did show soft tissue swelling and edema Wound culture pending-Showing pinpoint growth No concern for sepsis at this time Appreciate surgery input and recommendation to continue current antibiotic Wound care nurse consult Received empiric IV Rocephin and vancomycin in the emergency room, we will continue with IV cefepime and Dapto Wound has been looking better and will continue with the current management Continue with the wound care Leg wound is much better as per the wound care C-reactive protein is minimally elevated at 2.62 Abnormal LFTs Likely secondary to COVID-19 virus infection Could be secondary to hypotension that may have happened before Hepatitis panel has been negative will monitor LFTs LFTs has been almost normal (2) Chronic wound: Plan COVID-19 infection Patient testing positive for COVID, currently asymptomatic Not currently hypoxic Presenting from residential Supportive care as needed COVID precautions Remains free from any respiratory symptoms No respiratory symptoms and CRP is mildly elevated at 2.62 Dementia Family concerned as the note patient sundown's severely Delirium precautions, Frequent reorientation, avoid sedating medications as able Continue home memantine As needed olanzapine for agitation Has been requiring one-to-one sitter occasionally Hypertension Continue home atenolol Continue other home meds as ordered CODE STATUS: DNR per [facility] documentation, confirmed with son Diet: regular DVT prophylaxis: Heparin subcu Dispo: Admit to [facility] Admission and Anticipated Discharge Date Admission Date: November 13, 2023 Subjective 11/14/2023 The patient was seen and examined in medical floor and in the COVID room He was admitted with cellulitis and bilateral lower extremity wound. And noted to have COVID-19 virus infection Remains confused from dementia but denies any significant symptoms 11/15/2023 The patient was seen and examined in medical floor in the COVID room She does not have any respiratory symptoms Remains confused secondary to dementia 11/16/2023 The patient was seen and examined in medical floor and in the COVID room She is pleasantly demented and denies any significant symptoms No fever and or chills and the leg wound has been improving Review of Systems Review of Systems: All systems reviewed and are unremarkable except as noted below Physical Exam Physical Exam: Sitting at the edge of the bed without any acute distress Constitutional: well developed, well nourished and + ill appearing Eyes: PERRL, conjunctivae normal, anicteric sclerae ENMT: external ear and nose normal, oropharynx normal Neck: trachea midline, no thyromegaly Respiratory: no respiratory distress Auscultation: + diminished lung sounds and + crackles (Occasional crackles at the bases) Cardiovascular: Rate/Rhythm: regular rate, regular rhythm and + bradycardic Heart Sounds: normal S1 and normal S2; no murmur Extremities: + edema (1+ edema bilaterally with chronic wounds ) Gastrointestinal (Abdomen): Inspection/Auscultation: normal bowel sounds; abdomen not distended Percussion/Palpation: abdomen soft; abdomen nontender Lymphatic: no cervical or axillary lymphadenopathy Results & Data Results & Data Vital Signs (Past 12 Hours) Vital Signs Temp Pulse Resp BP Pulse Ox O2 Del Method 11/16/23 09:27 Room Air 11/16/23 08:02 36.3 C L 49 L 18 149/78 H 99 Room Air Laboratory Results Current Inpatient Medications Acetaminophen (Acetaminophen 500 Mg Tab) 1,000 mg PO Q8H PRN PRN Reason: fever or mild pain Stop: 12/13/23 16:45 Atenolol (Atenolol 25 Mg Tablet) 25 mg PO DAILY [facility] Stop: 12/13/23 16:45 Last Admin: 11/16/23 08:48 Dose: Not Given Docusate Sodium (Docusate Sodium 100 Mg Cap) 100 mg PO BID PRN PRN Reason: constipation Stop: 12/13/23 16:45 Ferrous Sulfate (Ferrous Sulfate 325 Mg Tab) 325 mg PO BID [facility] Stop: 12/13/23 20:59 Last Admin: 11/16/23 08:46 Dose: 325 mg Heparin Sodium (Porcine) (Heparin Sod 5,000 Unit/0.5 Ml Vial) 5,000 units SQ Q12 [facility] Stop: 12/13/23 20:59 Last Admin: 11/16/23 08:45 Dose: 5,000 units Hydromorphone HCl (Hydromorphone Inj 0.5 Mg/0.5 Ml Syr) 0.25 mg IV Q6H PRN PRN Reason: Severe Pain (Scale 7, 8, 9,10) Stop: 11/27/23 16:45 Last Admin: 11/16/23 05:00 Dose: 0.25 mg Cefepime HCl 2,000 mg/ Syringe 20 mls @ 5 mls/min IV Q12H [facility]; Protocol Stop: 11/20/23 16:45 Last Admin: 11/16/23 04:46 Dose: 5 mls/min Daptomycin 225 mg/ Syringe 4.5 mls @ 2.25 mls/min IV Q24H [facility]; Protocol Stop: 11/20/23 20:59 Last Admin: 11/15/23 22:12 Dose: 2.25 mls/min Melatonin (Melatonin 3 Mg Tab) 3 mg PO HS [facility] Stop: 12/13/23 20:59 Last Admin: 11/15/23 22:13 Dose: 3 mg Memantine (Memantine Hcl 5 Mg Tab) 5 mg PO DAILY [facility] Stop: 12/14/23 08:59 Last Admin: 11/16/23 08:46 Dose: 5 mg Menthol (Cough Drop (Sugar Free) [place] 24 [place]/1 Box) 0 [place] BUCCAL Q4 PRN PRN Reason: Cough Stop: 12/14/23 21:00 Miconazole Nitrate (Miconazole Nitrate Powder 85 Gm) 1 appln EXT PRN PRN PRN Reason: Affected Skin Folds Stop: 12/14/23 01:30 Last Admin: 11/14/23 03:14 Dose: 1 appln Olanzapine (Olanzapine 10 Mg/2.1 Ml Sdv) 2.5 mg IM Q6H PRN PRN Reason: Agitation Stop: 12/13/23 16:45 Last Admin: 11/14/23 03:44 Dose: 2.5 mg Oxycodone HCl (Oxycodone Hcl Ir 5 Mg Tab (Immediate Release)) 5 mg PO Q8H PRN PRN Reason: moderate pain Stop: 11/27/23 16:45 Polyethylene Glycol (Polyethylene (Miralax) 17 Gm Pack) 17 gm PO DAILY PRN PRN Reason: Constipation Stop: 12/13/23 16:45 Vitamin D (Cholecalciferol 25 Mcg (1000 Units) Tab) 25 mcg PO DAILY [facility] Stop: 12/14/23 08:59 Last Admin: 11/16/23 08:46 Dose: 25 mcg (1) Cellulitis Laterality: unspecified laterality Site of cellulitis: extremity Site of cellulitis of extremity: lower extremity Qualified Code(s): L03.119 - Cellulitis of unspecified part of limb
[2023-11-16 14:45] VITALS: RESP 16
[2023-11-17 08:34] VITALS: TEMP 97.7
[2023-11-17] MEDS: amLODIPine BESYLATE 5 MG TAB PO SCH (10:42)
[2023-11-17] MEDS: ACETAMINOPHEN 500 MG TAB PO PRN (10:44)
[2023-11-17 11:14] VITALS: BP 112/68; PULSE 68; O2SAT 99
--- NOTE | 2023-11-17 11:55 | Hospitalist Progress Note ---
Date of Service November 17, 2023 Assessment & Plan (1) Cellulitis: Plan: Patient is an 88-year-old female with past medical history significant for dementia, hypertension, iron deficiency anemia, insomnia, vitamin D deficiency presenting from [facility] with concern for lower extremity wounds and cellulitis. Reportedly patient was on doxycycline and Keflex antibiotics courses for treatment at [facility]. Family denies any noted fevers, chills or night sweats But they do note that the wounds have been present for at least a month bilaterally. Cellulitis, bilateral lower extremities Chronic wounds Per son, wounds have been present for at least a month bilaterally Venous Doppler done in the emergency room of the left lower extremity notes no deep venous thrombi however it does note a complex fluid collection Right lower extremity with noted firm wound with possible necrotic center MRIs of bilateral Lower extremities did not show any evidence of osteomyelitis or any abscess formation it did show soft tissue swelling and edema Wound culture pending-Showing pinpoint growth No concern for sepsis at this time Appreciate surgery input and recommendation to continue current antibiotic Wound care nurse consult Received empiric IV Rocephin and vancomycin in the emergency room, we will continue with IV cefepime and Dapto Wound has been looking better and will continue with the current management Continue with the wound care Leg wound is much better as per the wound care C-reactive protein is minimally elevated at 2.62 Cellulitis of the leg has improved a lot and the antibiotic will be changed to oral Augmentin to finish the course of a total of 10 days Appreciate wound care input and recommendation of dressing She will be discharged to [facility] this afternoon Abnormal LFTs Likely secondary to COVID-19 virus infection Could be secondary to hypotension that may have happened before Hepatitis panel has been negative will monitor LFTs LFTs has been almost normal (2) Chronic wound: Plan COVID-19 infection Patient testing positive for COVID, currently asymptomatic Not currently hypoxic Presenting from retirement Supportive care as needed COVID precautions Remains free from any respiratory symptoms No respiratory symptoms and CRP is mildly elevated at 2.62 Dementia Family concerned as the note patient sundown's severely Delirium precautions, Frequent reorientation, avoid sedating medications as able Continue home memantine As needed olanzapine for agitation Has been requiring one-to-one sitter occasionally Has been requiring any one-to-one sitter seems to be stable for the last 2 days Hypertension Continue home atenolol Blood pressure remains elevated and will add amlodipine on top of atenolol Continue other home meds as ordered CODE STATUS: DNR per [facility] documentation, confirmed with son Diet: regular DVT prophylaxis: Heparin subcu Dispo: Admit to [facility] [place] [place] Admission and Anticipated Discharge Date Admission Date: November 13, 2023 Subjective 11/14/2023 The patient was seen and examined in medical floor and in the COVID room He was admitted with cellulitis and bilateral lower extremity wound. And noted to have COVID-19 virus infection Remains confused from dementia but denies any significant symptoms 11/15/2023 The patient was seen and examined in medical floor in the COVID room She does not have any respiratory symptoms Remains confused secondary to dementia 11/16/2023 The patient was seen and examined in medical floor and in the COVID room She is pleasantly demented and denies any significant symptoms No fever and or chills and the leg wound has been improving 11/17/2023 The patient was seen and examined in medical floor and in the COVID room She remains confused secondary to dementia Otherwise no apparent distress at rest Her leg wound has been improving Complains of nonspecific pain with movement of any parts of the body Review of Systems Review of Systems: All systems reviewed and are unremarkable except as noted below Physical Exam Physical Exam: Sitting at the edge of the bed without any acute distress Constitutional: well developed, well nourished and + ill appearing Eyes: PERRL, conjunctivae normal, anicteric sclerae ENMT: external ear and nose normal, oropharynx normal Neck: trachea midline, no thyromegaly Respiratory: no respiratory distress Auscultation: + diminished lung sounds and + crackles (Occasional crackles at the bases) Cardiovascular: Rate/Rhythm: regular rate, regular rhythm and + bradycardic Heart Sounds: normal S1 and normal S2; no murmur Extremities: + edema (1+ edema bilaterally with chronic wounds ) Gastrointestinal (Abdomen): Inspection/Auscultation: normal bowel sounds; abdomen not distended Percussion/Palpation: abdomen soft; abdomen nontender Skin: Has a small wound in the left leg and the surrounding inflammation has improved a lot Neurologic: + confused Has significant dementia Lymphatic: no cervical or axillary lymphadenopathy Results & Data Results & Data Vital Signs (Past 12 Hours) Vital Signs Temp Pulse Resp BP Pulse Ox O2 Del Method 11/17/23 11:13 68 112/68 99 Room Air 11/17/23 08:30 36.5 C 67 16 183/84 H 98 Room Air Medications Administered Current Inpatient Medications Acetaminophen (Acetaminophen 500 Mg Tab) 1,000 mg PO Q8H PRN PRN Reason: fever or mild pain Stop: 12/13/23 16:45 Last Admin: 11/17/23 10:44 Dose: 1,000 mg Amlodipine Besylate (Amlodipine Besylate 5 Mg Tab) 5 mg PO QAM [facility] Stop: 12/17/23 08:59 Last Admin: 11/17/23 10:42 Dose: 5 mg Amoxicillin/Clavulanate Potassium (Amoxicillin/Clavulanate Susp 400/57 Mg 5 Ml Btl) 875 mg PO BIDM [facility]; Protocol Stop: 11/24/23 16:59 Atenolol (Atenolol 25 Mg Tablet) 25 mg PO DAILY [facility] Stop: 12/13/23 16:45 Last Admin: 11/17/23 10:42 Dose: 25 mg Docusate Sodium (Docusate Sodium 100 Mg Cap) 100 mg PO BID PRN PRN Reason: constipation Stop: 12/13/23 16:45 Ferrous Sulfate (Ferrous Sulfate 325 Mg Tab) 325 mg PO BID [facility] Stop: 12/13/23 20:59 Last Admin: 11/17/23 10:42 Dose: 325 mg Heparin Sodium (Porcine) (Heparin Sod 5,000 Unit/0.5 Ml Vial) 5,000 units SQ Q12 [facility] Stop: 12/13/23 20:59 Last Admin: 11/17/23 10:42 Dose: 5,000 units Hydromorphone HCl (Hydromorphone Inj 0.5 Mg/0.5 Ml Syr) 0.25 mg IV Q6H PRN PRN Reason: Severe Pain (Scale 7, 8, 9,10) Stop: 11/27/23 16:45 Last Admin: 11/17/23 05:10 Dose: 0.25 mg Melatonin (Melatonin 3 Mg Tab) 3 mg PO HS [facility] Stop: 12/13/23 20:59 Last Admin: 11/16/23 21:46 Dose: 3 mg Memantine (Memantine Hcl 5 Mg Tab) 5 mg PO DAILY [facility] Stop: 12/14/23 08:59 Last Admin: 11/17/23 10:42 Dose: 5 mg Menthol (Cough Drop (Sugar Free) Angeles 24 Angeles/1 Box) 0 angeles BUCCAL Q4 PRN PRN Reason: Cough Stop: 12/14/23 21:00 Miconazole Nitrate (Miconazole Nitrate Powder 85 Gm) 1 appln EXT PRN PRN PRN Reason: Affected Skin Folds Stop: 12/14/23 01:30 Last Admin: 11/14/23 03:14 Dose: 1 appln Olanzapine (Olanzapine 10 Mg/2.1 Ml Sdv) 2.5 mg IM Q6H PRN PRN Reason: Agitation Stop: 12/13/23 16:45 Last Admin: 11/14/23 03:44 Dose: 2.5 mg Oxycodone HCl (Oxycodone Hcl Ir 5 Mg Tab (Immediate Release)) 5 mg PO Q8H PRN PRN Reason: moderate pain Stop: 11/27/23 16:45 Polyethylene Glycol (Polyethylene (Miralax) 17 Gm Pack) 17 gm PO DAILY PRN PRN Reason: Constipation Stop: 12/13/23 16:45 Vitamin D (Cholecalciferol 25 Mcg (1000 Units) Tab) 25 mcg PO DAILY [facility] Stop: 12/14/23 08:59 Last Admin: 11/17/23 10:42 Dose: 25 mcg (1) Cellulitis Laterality: unspecified laterality Site of cellulitis: extremity Site of cellulitis of extremity: lower extremity Qualified Code(s): L03.119 - Cellulitis of unspecified part of limb
[2023-11-17] MEDS ORDERED: AMOXICILLIN/CLAVULANATE SUSP 400/57 MG 5 ML BTL PO SCH (17:00)
[2023-11-17] MEDS ORDERED: AMOXICILLIN/CLAVULANATE POTAS 600/42.9 MG 5ML UDP PO SCH (17:00)
--- NOTE | 2023-11-18 08:37 | Discharge Summary ---
Date of Service November 18, 2023 Admission HPI Per Admitting Provider Patient is an 88-year-old female with past medical history significant for dementia, hypertension, iron deficiency anemia, insomnia, vitamin D deficiency presenting from [facility] with concern for lower extremity wounds and cellulitis. Reportedly patient was on doxycycline and Keflex antibiotics courses for treatment at [facility] with no improvement in symptoms. Family denies any noted fevers, chills or night sweats. But they do note that the wounds have been present for at least a month bilaterally. They note that their mom has dementia and at baseline is unable to answer questions. Son present in the room states he is the POA, states he has paperwork at home. Later confirmed with son that patient is DNR/DNI. Admission Exam Per Admitting Provider Physical Exam: General: Alert, Confused. No acute distress Skin: left lower extremity with erythema and noted prominent protruding, tender lesion with drainage on posterior calf. Right lower extremity firm and erythematous with possible necrotic center on posterior calf. Psych: confused Neuro: , difficulty with movements in the bed HEENT: NC/AT CV: RRR Resp: no increased effort of breathing Abdomen: Soft, nontender Extremities: left lower extremity with erythema and noted prominent protruding, tender lesion with drainage on posterior calf. Right lower extremity firm and erythematous with possible necrotic center on posterior calf. Principal Diagnosis Physical Exam: General: Alert, Confused. No acute distress Skin: left lower extremity with erythema and noted prominent protruding, tender lesion with drainage on posterior calf. Right lower extremity firm and erythematous with possible necrotic center on posterior calf. Psych: confused Neuro: , difficulty with movements in the bed HEENT: NC/AT CV: RRR Resp: no increased effort of breathing Abdomen: Soft, nontender Extremities: left lower extremity with erythema and noted prominent protruding, tender lesion with drainage on posterior calf. Right lower extremity firm and erythematous with possible necrotic center on posterior calf. Discharge Exam Sitting at the edge of the bed without any acute distress Constitutional well developed, well nourished and + ill appearing Eyes PERRL, conjunctivae normal, anicteric sclerae ENMT external ear and nose normal, oropharynx normal Neck trachea midline, no thyromegaly Respiratory no respiratory distress Auscultation: + diminished lung sounds and + crackles (Occasional crackles at the bases) Cardiovascular Rate/Rhythm: regular rate, regular rhythm and + bradycardic Heart Sounds: normal S1 and normal S2; no murmur Extremities: + edema (1+ edema bilaterally with chronic wounds ) Gastrointestinal (Abdomen) Inspection/Auscultation: normal bowel sounds; abdomen not distended Percussion/Palpation: abdomen soft; abdomen nontender Neurologic + confused Lymphatic no cervical or axillary lymphadenopathy Discharge Data Allergies Allergy/AdvReac Type Severity Reaction Status Date / Time No Known Allergies Allergy Unverified 11/13/23 13:27 Consultations 11/13/23 13:30 ED Decision to Admit Stat 11/13/23 19:52 Consult General Surgery Routine Ordered Studies 11/13/23 10:36 US venous doppler LE LT Stat 11/14/23 00:11 MR lower leg LT wo/w con Urgent MR lower leg RT wo/w con Urgent Hospital Course (1) Cellulitis: Patient is an 88-year-old female with past medical history significant for dementia, hypertension, iron deficiency anemia, insomnia, vitamin D deficiency presenting from [facility] with concern for lower extremity wounds and cellulitis. Reportedly patient was on doxycycline and Keflex antibiotics courses for treatment at [facility]. Family denies any noted fevers, chills or night sweats But they do note that the wounds have been present for at least a month bilaterally. Cellulitis, bilateral lower extremities Chronic wounds Per son, wounds have been present for at least a month bilaterally Venous Doppler done in the emergency room of the left lower extremity notes no deep venous thrombi however it does note a complex fluid collection Right lower extremity with noted firm wound with possible necrotic center MRIs of bilateral Lower extremities did not show any evidence of osteomyelitis or any abscess formation it did show soft tissue swelling and edema Wound culture pending-Showing pinpoint growth No concern for sepsis at this time Appreciate surgery input and recommendation to continue current antibiotic Wound care nurse consult Received empiric IV Rocephin and vancomycin in the emergency room, we will continue with IV cefepime and Dapto Wound has been looking better and will continue with the current management Continue with the wound care Leg wound is much better as per the wound care C-reactive protein is minimally elevated at 2.62 Cellulitis of the leg has improved a lot and the antibiotic will be changed to oral Augmentin to finish the course of a total of 10 days Appreciate wound care input and recommendation of dressing She will be discharged to [facility] this afternoon Abnormal LFTs Likely secondary to COVID-19 virus infection Could be secondary to hypotension that may have happened before Hepatitis panel has been negative will monitor LFTs LFTs has been almost normal (2) Chronic wound: Plan COVID-19 infection Patient testing positive for COVID, currently asymptomatic Not currently hypoxic Presenting from retirement Supportive care as needed COVID precautions Remains free from any respiratory symptoms No respiratory symptoms and CRP is mildly elevated at 2.62 Dementia Family concerned as the note patient sundown's severely Delirium precautions, Frequent reorientation, avoid sedating medications as able Continue home memantine As needed olanzapine for agitation Has been requiring one-to-one sitter occasionally Has been requiring any one-to-one sitter seems to be stable for the last 2 days Hypertension Continue home atenolol Blood pressure remains elevated and will add amlodipine on top of atenolol Continue other home meds as ordered CODE STATUS: DNR per [facility] documentation, confirmed with son Diet: regular DVT prophylaxis: Heparin subcu Dispo: Admit to [facility] Total Time Total Time Spent Total Time Spent (In Minutes): 35 minutes Discharge Plan Discharge Items Patient Disposition: Personal Retirement Reason For Visit: WOUND Discharge Diagnosis: Cellulitis of left leg, COVID-19 virus infection, dementia, hypertension Condition on Discharge: Fair Activity: As commented below Activity Comment: Needs assisstance with ADLS Non-emergency contact: Primary Care Provider Call non-emergency contact if: you have any medication questions and your symptoms worsen Follow-up/Referrals: Diego Leigh DO [Primary Care Provider] - Diet: Regular Addtl Attending Provider Instructions: Please take precautions to avoid falls Continue the dressing of the leg as advised Finish the course of antibiotic as advised Amlodipine as prescribed to control the blood pressure further Please follow-up appointment with your healthcare providers COVID-19 virus infectiondiagnosed on 11/13/2023 Will need 6 more days of isolation as per the criteria below Home Isolation COVID-19 Instructions The following information about Home Isolation is from the CDC Website: https://www.cdc.gov/coronavirus/2019-ncov/hcp/pfszonlp-ayhtlzk-tfqpgm.html Stay home except to get medical care People who are mildly ill with COVID-19 are able to isolate at home during their illness. You should restrict activities outside your home, except for getting medical care. Do not go to work, school, or public areas. Avoid using public transportation, ride-sharing, or taxis. Separate yourself from other people and animals in your home People: As much as possible, you should stay in a specific room and away from other people in your home. Also, you should use a separate bathroom, if available. Animals: You should restrict contact with pets and other animals while you are sick with COVID-19, just like you would around other people. Although there have not been reports of pets or other animals becoming sick with COVID-19, it is still recommended that people sick with COVID-19 limit contact with animals until more information is known about the virus. When possible, have another member of your household care for your animals while you are sick. If you are sick with COVID-19, avoid contact with your pet, including petting, snuggling, being kissed or licked, and sharing food. If you must care for your pet or be around animals while you are sick, wash your hands before and after you interact with pets and wear a face mask. Call ahead before visiting your doctor If you have a medical appointment, call the healthcare provider and tell them that you have or may have COVID-19. This will help the healthcare providers office take steps to keep other people from getting infected or exposed. Wear a face mask You should wear a face mask when you are around other people (e.g., sharing a room or vehicle) or pets and before you enter a healthcare providers office. If you are not able to wear a face mask (for example, because it causes trouble breathing), then people who live with you should not stay in the same room with you, or they should wear a face mask if they enter your room. Cover your coughs and sneezes Cover your mouth and nose with a tissue when you cough or sneeze. Throw used tissues in a lined trash can. Immediately wash your hands with soap and water for at least 20 seconds or, if soap and water are not available, clean your hands with an alcohol-based hand geopolitics teacher that contains at least 60% alcohol. Clean your hands often Wash your hands often with soap and water for at least 20 seconds, especially after blowing your nose, coughing, or sneezing; going to the bathroom; and before eating or preparing food. If soap and water are not readily available, use an alcohol-based hand geopolitics teacher with at least 60% alcohol, covering all surfaces of your hands and rubbing them together until they feel dry. Soap and water are the best option if hands are visibly dirty. Avoid touching your eyes, nose, and mouth with unwashed hands. Avoid sharing personal household items You should not share dishes, drinking glasses, cups, eating utensils, towels, or bedding with other people or pets in your home. After using these items, they should be washed thoroughly with soap and water. Clean all high-touch surfaces everyday High touch surfaces include counters, tabletops, doorknobs, bathroom fixtures, toilets, phones, keyboards, tablets, and bedside tables. Also, clean any surfaces that may have blood, stool, or body fluids on them. Use a household cleaning spray or wipe, according to the label instructions. Labels contain instructions for safe and effective use of the cleaning product including precautions you should take when applying the product, such as wearing gloves and making sure you have good ventilation during use of the product. Monitor your symptoms Seek prompt medical attention if your illness is worsening (e.g., difficulty b reathing).Beforeseeking care, call your healthcare provider and tell them that you have, or are being evaluated for, COVID-19. Put on a face mask before you enter the facility. These steps will help the healthcare providers office to keep other people in the office or waiting room from getting infected or exposed. Ask your healthcare provider to call the local or state health department. Persons who are placed under active monitoring or facilitated self- monitoring should follow instructions provided by their local health department or occupational health professionals, as appropriate. When working with your local health department check their available hours. If you have a medical emergency and need to call 911, notify the dispatch personnel that you have, or are being evaluated for COVID-19. If possible, put on a face mask before emergency medical services arrive. Discontinuing home isolation Patients with confirmed COVID-19 should remain under home isolation precautions until the risk of secondary transmission to others is thought to be low. The decision to discontinue home isolation precautions should be made on a [id number] basis, in consultation with healthcare providers and state and local health departments. Pending Studies at Discharge: No Stand-Alone Forms: [facility] [employer], Smoking Cessation Skilled Items Patient informed of condition?: Yes DNR: Yes Discharge Level of Care: Skilled Communicable Disease: Yes Discharge Prognosis: Stable Lines: None Urinary Catheter: No Medications and DC Order Prescriptions: New amlodipine [Norvasc] 5 mg Tablet 5 mg PO QAM Qty: 30 0RF amoxicillin-pot clavulanate 400-57 mg/5 mL Suspension For Reconstitution 10 ml PO BIDM Qty: 12 0RF Continued acetaminophen 325 mg Tablet 650 mg PO DAILY MDD 3G/24Hr PRN (Reason: Pain/Temp) loperamide [Imodium A-D] 2 mg Capsule 2 mg PO Q6H PRN (Reason: Diarrhea) atenolol 25 mg tablet 25 mg PO DAILY ferrous sulfate 325 mg (65 mg iron) Tablet 325 mg PO BID memantine 5 mg tablet 5 mg PO DAILY cholecalciferol (vitamin D3) [Vitamin D3] 25 mcg (1,000 unit) Tablet 25 mcg PO DAILY melatonin 5 mg Tablet 5 mg PO HS Discharge Orders: Discharge Order (Routine); Ordered 11/17/23 Ordered By: Idris Davis Admission Data Admit Date/Time: 11/13/23 13:55 Attending Provider: Idris Davis Admit Provider: Sole Kunz Primary Care Provider: Diego Leigh Other Providers: Sole Kunz; Diego Smith Other Interventions: Discharge Summary Assessment (RN) Last Done: 11/17/23 13:22
== END 2023-11-17 14:00 | disposition home or self-care (01) | DRG 602 ==
LOC: ED 10:19 → EDINP 13:55 → SUATTDRO 13:55 → 3E 16:37